=== PATIENT | male | born 1965 | race Caucasian/White ===

== ENCOUNTER 2019-07-14 13:50 | Emergency (ER) | payer OTHER ==
[~2019-07-14] VITALS: Ht 190.5 cm; Wt 92.3 kg
[2019-07-14] MEDS ORDERED: ONDANSETRON HCL INJ 2MG/ML 2ML 2 MG/ML VIAL IV STA (14:19)
[2019-07-14] MEDS ORDERED: FAMOTIDINE 20 MG/2 ML VIAL IV STA (14:19)
[2019-07-14] MEDS ORDERED: WELLBUTRIN SR150 MG (14:26)
[2019-07-14] MEDS ORDERED: LOSARTAN POTASS25 MG (14:26)
[2019-07-14] MEDS ORDERED: SODIUM CHLORIDE 0.9% 1000ML 1,000 ML IV ONE (14:30)
[2019-07-14] MEDS ORDERED: ONDANSETRON HCL INJ 2MG/ML 2ML 2 MG/ML VIAL ONE (14:34)
[2019-07-14] MEDS ORDERED: FAMOTIDINE 20 MG/2 ML VIAL IV ONE (14:34)
[2019-07-14] MEDS ORDERED: IOPAMIDOL 370 MG/ML 200 ML INFUS..BTL INJ ONE (15:42)
--- NOTE | 2019-07-14 16:44 | Diagnostic Imaging Report ---
EXAM: CT Abdomen and Pelvis WITH intravenous contrast INDICATION: Vomiting, abdominal pain COMPARISON: None. TECHNIQUE: Abdomen and pelvis were scanned utilizing a multidetector helical scanner from the lung base to the pubic symphysis after administration of IV contrast. Coronal and sagittal reformations were obtained. Routine protocol was performed. Scan was performed during portal venous phase. IV CONTRAST: 100mL of Isovue 370 ORAL CONTRAST: Water RADIATION DOSE: Total DLP: 736 mGy*cm Dose modulation, iterative reconstruction, and/or weight based adjustment of the mA/kV was utilized to reduce the radiation dose to as low as reasonably achievable. FINDINGS: LOWER THORAX: Normal. HEPATOBILIARY: Diffuse hepatic steatosis. No focal liver lesion. No biliary ductal dilation. Unremarkable gallbladder. SPLEEN: No splenomegaly. PANCREAS: No focal masses or ductal dilatation. ADRENALS: No adrenal nodules. KIDNEYS/URETERS: No hydronephrosis, stones, or solid mass lesions. PELVIC ORGANS/BLADDER: Distended fluid-filled bladder. PERITONEUM / RETROPERITONEUM: No free air or fluid. LYMPH NODES: No lymphadenopathy. VESSELS: Unremarkable. GI TRACT: No abnormal bowel thickening. No bowel obstruction. Normal appendix. BONES AND SOFT TISSUES: No acute osseous injury. No suspicious lytic or blastic lesions. IMPRESSION: No acute findings in the abdomen or pelvis. Diffuse hepatic steatosis. Signed by: Viviana Park MD on 07/14/2019 4:41 PM
--- NOTE | 2019-07-14 16:45 | Diagnostic Imaging Report ---
EXAMINATION: CXR 2 VIEW - HOPD INDICATION: Cough COMPARISON: None FINDINGS: LINES/TUBES:None LUNGS:The lungs are well-inflated. No focal consolidation or pulmonary edema. PLEURA:No pleural effusion or pneumothorax. MEDIASTINUM:The cardiomediastinal silhouette appears normal in size and shape. BONES/SOFT TISSUES:No acute osseous injury. ABDOMEN:No free air under the diaphragm. IMPRESSION: No focal pneumonia or pulmonary edema. Signed by: Viviana Park MD on 07/14/2019 4:43 PM
[2019-07-14] MEDS ORDERED: ZOFRAN4 MG PO (17:36)
[2019-07-14 17:55] VITALS: BP 120/73
[2019-07-14] MEDS ORDERED: SODIUM CHLORIDE 0.9% 1000ML 1,000 ML ONE (18:17)
== END 2019-07-14 17:50 | disposition home or self-care (01) ==
LOC: FSED 13:50
DX: J20.9 Acute bronchitis, unspecified (principal); R10.84 Generalized abdominal pain; F32.9 Major depressive disorder, single episode, unspecified; R11.2 Nausea with vomiting, unspecified; I10 Essential (primary) hypertension
CPT/HCPCS: 36415; 71046; 74177; 80048; 80076; 81003; 83690; 85025; 96374; 96375; 99284; J2405; J7030; Q9967

== ENCOUNTER 2022-02-04 18:57 | Emergency (ER) | payer SELFPAY ==
[~2022-02-04] VITALS: Ht 190.5 cm; Wt 92.1 kg
[~2022-02-04 18:57] MED LIST: LOSARTAN POTASS25 MG; WELLBUTRIN SR150 MG; ZOFRAN4 MG PO
== END 2022-02-04 19:50 | disposition short-term general hospital (02) ==
LOC: FSED 19:01
DX: R10.9 Unspecified abdominal pain (principal)